=== PATIENT | female | born 1990 | race Caucasian/White ===

== ENCOUNTER → 2024-08-21 13:33 | Outpatient (REF) | payer OTHER, SELFPAY | LOC: PNTC 13:33 | PROVIDERS: ATTENDING PHYSICIAN Obstetrics & Gynecology | DX: Z36.0 Encounter for antenatal screening for chromosomal anomalies (principal); Z36.82 Encounter for antenatal screening for nuchal translucency | CPT/HCPCS: 76801; 76813 ==

== ENCOUNTER → 2024-09-14 11:05 | Outpatient (REF) | payer OTHER, SELFPAY | LOC: PNTC 11:05 | PROVIDERS: ATTENDING PHYSICIAN Obstetrics & Gynecology | DX: O99.210 Obesity complicating pregnancy, unspecified trimester (principal) | CPT/HCPCS: 76805 ==

== ENCOUNTER 2024-09-20 18:20 | Emergency (ER) | payer OTHER, SELFPAY ==
[2024-09-20 18:22] VITALS: BP 144/94
[2024-09-20 18:26] VITALS: BP 140/93
--- NOTE | 2024-09-20 18:50 | ED.GENMED ---
History of Present Illness
General
Chief Complaint: Heart Rate Problem
Source: patient
Exam Limitations: none
Time Seen by Provider: 09/20/24 18:49
Nursing documentation reviewed up to this point in time: agreed with
History of Present Illness
History of Present Illness:
34 yo female 17 weeks hx kidney stones, iron deficiency anemia, pre eclampsia with past 2 pregnancies, HELP syndrome after last delivery 6 yrs ago, had US 6 days ago which was normal for her . presents for palpitations that
started 2 weeks ago intermittently, has gradually become more frequent and past 2 days every 1-2 minutes she feels heart 'skipping a beat, like a flutter' lasting only one beat for a second.
Denies chest pain or SOB.
Past History
Past History
ED Past Medical History: Psychiatric (Anxiety/depression) and Other (UTI, kidney stones )
ED Past Surgical History: Other ([place] teeth )
Social History
Tobacco: Non-smoker
Alcohol: None
Drug: None
Personal: Single
Living: with family
Employment: Employed
Family History
Family History: Other (Noncontributory)
Review of Systems
Review of Systems
Allergies reviewed?: Yes
All Other Systems: ROS reviewed and negative except as documented in HPI and ROS
Constitutional: Denies fever, fatigue or chills
Respiratory: Denies trouble breathing
Cardiac: Reports palpitations; Denies chest pain
ABD/GI: Denies abdominal pain, nausea or diarrhea
: Denies dysuria, frequency or difficulty voiding
Musculoskeletal: Reports no symptoms
Skin: Reports no symptoms
Neurological: Reports no symptoms
Phy Exam
Physical Exam
Physical Exam:
GENERAL: No acute distress. A&Ox3.
CONSTITUTIONAL: Afebrile.
EYES: clear, conjunctivae normal
ENMT: moist mucus membranes, Pharynx nl
RESPIRATORY: Regular respirations, nonlabored, lungs clear.
CARDIOVASCULAR: Regular rate and rhythm, no murmurs, no rubs.
GI: Soft, nontender, normal BS
MUSCULOSKELETAL: Moves with ease. Well perfused.
SKIN: Warm, dry, pink
PSYCH: Normal mood and affect. Well kept, interactive and appropriate
NEUROLOGIC: Awake, alert and oriented. No focal neurological deficits
Course
Orders/Labs/Results
Orders:
Orders
09/20/24 18:21
ECG [Electrocardiogram (*1)] Urgent
Reason for Study: Palpitations
EKG- Treatment ONCE
09/20/24 19:08
Complete Blood Count/With Diff Urgent
Comprehensive Metabolic Panel Urgent
TSH Reflex To Free T4 Urgent
Abnormal Lab Results
09/20/24
19:08
Hct 34.4 L %
(37.0-47.0)
MCV 80.4 L fL
(81.0-99.0)
Plt Count 121 L 10^3/uL
(130-400)
MPV 12.2 H fL
(7.4-10.4)
AST 42 H U/L
(14-36)
ALT 39 H U/L
(0-35)
09/20/24 19:08
09/20/24 19:08
Vital Signs
Initial and Last Documented VS:
Initial Vital Signs
Temp Pulse Resp BP Pulse Ox
98.4 F 94 16 144/94 100
09/20/24 18:22 09/20/24 18:22 09/20/24 18:22 09/20/24 18:22 09/20/24 18:22
Last Documented Vital Signs
Temp Pulse Resp BP Pulse Ox
98.4 F 79 18 134/80 97
09/20/24 18:59 09/20/24 20:45 09/20/24 20:45 09/20/24 20:00 09/20/24 20:30
Risk Analyst consulted with Physician
Risk Analyst consulted with physician?: Yes
Name of Physician Consulted: Oscar
MDM/Problems Addressed
Differential Diagnosis Includes:
PVC's, PAC's
MDM/Problems Addressed:
34 yo female 17 weeks hx kidney stones, iron deficiency anemia, pre eclampsia with past 2 pregnancies, HELP syndrome after last delivery 6 yrs ago, had US 6 days ago which was normal for her . presents for palpitations that
started 2 weeks ago intermittently, has gradually become more frequent and past 2 days every 1-2 minutes she feels heart 'skipping a beat, like a flutter' lasting only one beat for a second.
Denies chest pain or SOB.
Afebrile, NAD
EKG: NSR
7:30 PM: Patient has had no episodes since arrival, her bedside monitor is consistently NSR
8:15 p.m.
CBC normal
CMP normal
TSH normal
No abnormal beats on monitor since arrival.
Will refer to PCP and give name of acid bleacher for possible Holter Monitor
Discussed with Dr. Moore who agrees with assessment and plan
*EKG
EKG Intrepretation Date: 09/20/24
Interpretation: normal
Rate: normal
Rhythm: sinus
[place]: normal axis
Interval: normal interval
QRS Pattern: normal QRS
Ischemia: no ischemia
*Critical Care Note
Total Time (30-74mins, 75-104mins- exclusive of procedures): Not Applicable
ED Attending Note
-
Portions of this chart may have been created with voice recognition software.� Occasional wrong word or��sound alike� substitutions may have occurred due to the inherent limitations of voice recognition software.
Discharge Plan
Departure
Patient Disposition: Home (Routine Discharge)
Date of Disposition: 09/20/24
Time of Disposition: 20:19
Patient with high blood pressure during this ER visit?: No
Condition: Good
Discharge Problem:
Palpitations
Instructions: Palpitations (DC)
Prescriptions:
No Action
sertraline 50 MG tablet
75 mg PO DAILY
oxycodone-acetaminophen 5 MG/325 MG tablet
1 tab PO Q6HPRN PRN (Reason: pain) Qty: 6 0RF
ondansetron 4 MG tablet,disintegrating
4 mg PO QIDPRN PRN (Reason: nausea/vomiting) Qty: 10 0RF
ibuprofen 800 MG tablet
800 mg PO QIDPRN PRN (Reason: pain) Qty: 30 0RF
cephalexin 500 MG tablet
500 mg PO QID 10 Days Qty: 40 0RF
Referrals:
Nicole Hannon CRNP [Family Provider] - Call in 1-3 days for appt
Jim Huffman MD [Active] - As needed
Activity Restrictions/Additional Instructions:
As we discussed, nothing worrisome in your workup here today.
No abnormal beats on your monitor or EKG.
You may be having PVC's or PAC's which are annoying but not dangerous.
Talk to your primary doctor. If they continue, you may need a Holter Monitor
I gave you the name of a acid bleacher to follow up with if needed.
Interventions
Interventions:
*Risk Screen - Suicide Last Done: 09/20/24 18:22
*General Assessment Last Done: 09/20/24 19:14
*Neglect/Abuse Screening Last Done: 09/20/24 18:22
*ED- Fall Risk Assessment Last Done: 09/20/24 19:14
*ED COVID-19 Vaccine History Last Done: 09/20/24 19:14
*Nursing Disposition Last Done: 09/20/24 20:51
ED- Cardiac Assessment Last Done: 09/20/24 19:14
ED- Pulmonary Assessment Last Done: 09/20/24 19:14
Discharge Date and Time
Discharge Date/Time: 09/20/24 20:53
Print Language: TAJIK
[2024-09-20 18:57] VITALS: BMI 30.8
[2024-09-20 18:58] VITALS: BP 142/82
[2024-09-20 19:30] LABS: % Basophils 0.1 % (0-2); % Eosinophils 0.4 % (0-6); % Immature Granulocytes 0.4 % (0-0.5); % Lymphocytes 22.9 % (20.5-51.1); % Monocytes 4.9 % (1.7-9.3); % Neutrophils 71.3 % (42.2-75.2); Absolute Lymphocytes 1.9 10^3/uL (1.2-3.4); Absolute Monocytes 0.4 10^3/uL (0.1-0.6); Absolute Neutrophils 5.8 10^3/uL (1.4-6.5); Hematocrit 34.4 % (37.0-47.0); Mean Corp Hgb Conc. 34.9 g/dL (33.0-37.0); Mean Corpuscular Volume 80.4 fL (81.0-99.0); Mean Platelet Volume 12.2 fL (7.4-10.4); Nucleated Red Blood Cells % 0 %; Platelet Count 121 10^3/uL (130-400); Red Blood Cell Count 4.28 10^6/uL (4.20-5.40); Red Cell Dist. Width 12.6 % (11.5-14.5); White Blood Cell Count 8.1 10^3/uL (4.8-10.8)
[2024-09-20 19:35] LABS: ALT (SGPT) 39 U/L (0-35); AST (SGOT) 42 U/L (14-36); Alkaline Phosphatase 116 U/L (38-126); Blood Urea Nitrogen 8 mg/dl (7-17); Calcium 9.1 mg/dl (8.4-10.2); Carbon Dioxide 23 mmol/L (22-30); Chloride 105 mmol/L (98-107); Estimated Creatinine Clearance > 125 ml/min; Glucose 97 mg/dl (70-99); Potassium 4.2 mmol/L (3.5-5.1); Sodium 137 mmol/L (135-145); Total Bilirubin 0.4 mg/dl (0.2-1.3); Total Protein 6.8 g/dl (6.3-8.2); eGFR > 60.00
[2024-09-20 20:00] VITALS: BP 134/80
[2024-09-20 20:06] LABS: TSH Reflex To Free T4 0.92 uIU/ml (0.47-4.68)
== END 2024-09-20 20:53 | disposition home or self-care (01) ==
LOC: EMR 18:20
PROVIDERS: Registered Nurse; EMERGENCY PHYSICIAN Student in an Organized Health Care Education/Training Program; FAMILY PHYSICIAN Nurse Practitioner Adult Health
DX: O99.891 Other specified diseases and conditions complicating pregnancy (principal); R00.2 Palpitations; Z87.59 Personal history of other complications of pregnancy, childbirth and the puerperium; Z3A.17 17 weeks gestation of pregnancy
CPT/HCPCS: 99284; 80053; 84443; 85025; 93005

== ENCOUNTER 2024-10-04 16:50 | Emergency (ER) | payer OTHER, SELFPAY ==
[2024-10-04 17:14] VITALS: BP 139/90
[2024-10-04 17:39] LABS: % Basophils 0.1 % (0-2); % Eosinophils 0.1 % (0-6); % Immature Granulocytes 0.2 % (0-0.5); % Lymphocytes 16.6 % (20.5-51.1); % Monocytes 3.8 % (1.7-9.3); % Neutrophils 79.2 % (42.2-75.2); Absolute Lymphocytes 1.4 10^3/uL (1.2-3.4); Absolute Monocytes 0.3 10^3/uL (0.1-0.6); Absolute Neutrophils 6.6 10^3/uL (1.4-6.5); Hematocrit 32.7 % (37.0-47.0); Hemoglobin 11.3 g/dL (12.0-16.0); Mean Corp Hgb Conc. 34.6 g/dL (33.0-37.0); Mean Corpuscular Hgb 28.2 pg (27.0-31.0); Mean Corpuscular Volume 81.5 fL (81.0-99.0); Mean Platelet Volume 12.3 fL (7.4-10.4); Nucleated Red Blood Cells % 0 %; Platelet Count 133 10^3/uL (130-400); Red Blood Cell Count 4.01 10^6/uL (4.20-5.40); Red Cell Dist. Width 12.8 % (11.5-14.5); White Blood Cell Count 8.4 10^3/uL (4.8-10.8)
[2024-10-04 17:43] LABS: Urine Albumin 3+ (Neg - Trace); Urine Bilirubin Negative (Negative); Urine Character Bloody (Clear); Urine Color Red; Urine Glucose Negative (Negative); Urine Ketone 2+ (Negative); Urine Leukocyte 3+ (Negative); Urine Nitrite Negative (Negative); Urine Occult Blood 4+ (Negative); Urine Urobilinogen 1+ (Neg - 1+)
[2024-10-04 17:51] LABS: Urine Bacteria Moderate (Negative); Urine Red Blood Cell >100 /HPF (0-2)
[2024-10-04 17:53] LABS: ALT (SGPT) 30 U/L (0-35); AST (SGOT) 36 U/L (14-36); Albumin 3.5 g/dl (3.5-5.0); Alkaline Phosphatase 98 U/L (38-126); Blood Urea Nitrogen 6 mg/dl (7-17); Carbon Dioxide 25 mmol/L (22-30); Chloride 106 mmol/L (98-107); Glucose 106 mg/dl (70-99); Lipase 124 U/L (23-300); Sodium 138 mmol/L (135-145); Total Bilirubin 0.5 mg/dl (0.2-1.3); Total Protein 6.4 g/dl (6.3-8.2); eGFR > 60.00
[2024-10-04 19:22] LABS: HCG, Serum Qualitative Screen Positive
[2024-10-04 20:05] VITALS: BP 148/77
[2024-10-04 20:17] VITALS: BMI 31.0
--- NOTE | 2024-10-04 20:43 | ED.GENMED ---
History of Present Illness
General
Chief Complaint: Urinary Symptoms
Source: patient
Exam Limitations: none
Time Seen by Provider: 10/04/24 20:11
Nursing documentation reviewed up to this point in time: agreed with
History of Present Illness
History of Present Illness:
34-year-old female G3, P2 at 19 weeks 2 days presents for hematuria on her urinalysis by her [employer] doctor yesterday, she has been having mild right flank pain and right groin pain for about 3 weeks. She denies fever or chills. She denies
nausea or vomiting.
Past History
Past History
ED Past Medical History: Psychiatric (Anxiety/depression) and Other (UTI, kidney stones )
ED Past Surgical History: Other ([place] teeth )
Social History
Tobacco: Non-smoker
Alcohol: None
Drug: None
Personal: Single
Living: with family
Employment: Employed
Family History
Family History: Other (Noncontributory)
Review of Systems
Review of Systems
Allergies reviewed?: Yes
All Other Systems: ROS reviewed and negative except as documented in HPI and ROS
Constitutional: Denies fever or chills
Respiratory: Denies trouble breathing
Cardiac: Denies chest pain
ABD/GI: Denies abdominal pain, nausea, vomiting, diarrhea or anorexia
: Reports flank pain (Mild right); Denies dysuria, frequency, incontinence, difficulty voiding, urgency or bleeding
Musculoskeletal: Reports other (Right groin pain)
Skin: Reports no symptoms
Neurological: Reports no symptoms
Phy Exam
Physical Exam
Physical Exam:
GENERAL: No acute distress. A&Ox3.
CONSTITUTIONAL: Afebrile.
EYES: clear, conjunctivae normal
ENMT: moist mucus membranes, Pharynx nl
RESPIRATORY: Regular respirations, nonlabored, lungs clear.
CARDIOVASCULAR: Regular rate and rhythm, no murmurs, no rubs.
GI: Soft, nontender, normal BS
MUSCULOSKELETAL: Tender to palpate right groin, pain here aggravated with lifting leg and flexing hip, right flank mildly tender to percussion. Moves with ease. Well perfused.
SKIN: Warm, dry, pink
PSYCH: Normal mood and affect. Well kept, interactive and appropriate
NEUROLOGIC: Awake, alert and oriented. No focal neurological deficits
Course
Orders/Labs/Results
Orders:
Orders
10/04/24 17:18
Test Result ONCE
10/04/24 17:33
Beta Hcg Serum Qualitative Screen [HCG, Serum Qualitative Screen] Urgent
Complete Blood Count/With Diff Urgent
Comprehensive Metabolic Panel Urgent
Lipase Urgent
Urinalysis Reflex To Culture Urgent
Date Specimen was Collected: 10/04/24
Time Specimen was Collected: 17:17
Urine Microscopic Reflex Cult Urgent
Urine Culture Urgent
BULMARO Source: U
Specimen Description:
Date Specimen was Collected: 10/04/24
Time Specimen was Collected: 17:17
10/04/24 20:42
US Renal With Bladder Urgent
Comment: bladder not full ok, looking at ureteral jets
Reason For Exam: R groin pain, hematuria, 19 weeks
Abnormal Lab Results
10/04/24
17:33
RBC 4.01 L 10^6/uL
(4.20-5.40)
Hgb 11.3 L g/dL
(12.0-16.0)
Hct 32.7 L %
(37.0-47.0)
MPV 12.3 H fL
(7.4-10.4)
Absolute Neuts (auto) 6.6 H 10^3/uL
(1.4-6.5)
Neutrophils % 79.2 H %
(42.2-75.2)
Lymphocytes % 16.6 L %
(20.5-51.1)
BUN 6 L mg/dl
(7-17)
Glucose 106 H mg/dl
(70-99)
Urine Ketones 2+ A
(Negative)
Ur Occult Blood Reflex 4+ A
(Negative)
Leukocyte Esterase Rfl 3+ A
(Negative)
Urine RBC >100 A /HPF
(0-2)
Urine Bacteria (Reflex) Moderate A
(Negative)
Urine Albumin (Reflex) 3+ A
(Neg - Trace)
10/04/24 17:33
10/04/24 17:33
Vital Signs
Initial and Last Documented VS:
Initial Vital Signs
Temp Pulse Resp BP Pulse Ox
98.4 F 92 16 139/90 98
10/04/24 17:14 10/04/24 17:14 10/04/24 17:14 10/04/24 17:14 10/04/24 17:14
Last Documented Vital Signs
Temp Pulse Resp BP Pulse Ox
98.4 F 92 16 148/77 97
10/04/24 17:14 10/04/24 17:14 10/04/24 17:14 10/04/24 20:05 10/04/24 20:18
MDM/Problems Addressed
Differential Diagnosis Includes:
Kidney stone, ureteral stone, UTI
R groin strain
MDM/Problems Addressed:
34-year-old female G3, P2 at 19 weeks 2 days presents for hematuria on her urinalysis by her [employer] doctor yesterday, she has been having mild right flank pain and right groin pain for about 3 weeks. She denies fever or chills. She denies
nausea or vomiting.
Afebrile, NAD
CBC, CMP unremarkable
U/A with blood, no sign of infection, culture pending
Renal US radiology report read:
IMPRESSION:
1. Moderate right hydronephrosis.
2. Lower pole right renal calculus measuring up to 1.1 cm..
Pt pain is not significant at this time and she is comfortable going home. 'mild' in right flank and absent in right groin when laying still, point tender over right groin, pain worse with movement, more consistent with groin strain, musculoskeletal
pain.
She will contact Dr. Santana tomorrow.
Strict return instructions discussed.
ED Attending Note
-
Portions of this chart may have been created with voice recognition software.� Occasional wrong word or��sound alike� substitutions may have occurred due to the inherent limitations of voice recognition software.
Discharge Plan
Departure
Patient Disposition: Home (Routine Discharge)
Date of Disposition: 10/04/24
Time of Disposition: 23:01
Patient with high blood pressure during this ER visit?: No
Condition: Good
Discharge Problem:
Kidney stone
Instructions: Kidney stones in adults
Prescriptions:
No Action
sertraline 50 MG tablet
75 mg PO DAILY
oxycodone-acetaminophen 5 MG/325 MG tablet
1 tab PO Q6HPRN PRN (Reason: pain) Qty: 6 0RF
ondansetron 4 MG tablet,disintegrating
4 mg PO QIDPRN PRN (Reason: nausea/vomiting) Qty: 10 0RF
ibuprofen 800 MG tablet
800 mg PO QIDPRN PRN (Reason: pain) Qty: 30 0RF
cephalexin 500 MG tablet
500 mg PO QID 10 Days Qty: 40 0RF
Referrals:
Miah Santana MD [Active] - Tomorrow
UNKNOWN - PT DOES,NOT KNOW [Unknown Provider] -
Activity Restrictions/Additional Instructions:
As we discussed, on your ultrasound, there is moderate swelling of the right kidney indicating either a recently passed kidney stone or a kidney stone down in the ureter that is not visible on the ultrasound.
As long as your pain is controlled, you can go home, drink plenty of fluids and call Dr. Santana tomorrow morning
There is no sign of urine infection, a urine culture was sent and if any bacteria grow out that need antibiotic, we will contact you.
Return here immediately for worsening pain, fever, vomiting or feeling sicker in any way.
Strain your urine and collect any stone in the container provided.
Tylenol as needed for pain
Interventions
Interventions:
*Risk Screen - Suicide Last Done: 10/04/24 17:14
*General Assessment Last Done: 10/04/24 20:18
*Neglect/Abuse Screening Last Done: 10/04/24 17:14
*ED- Fall Risk Assessment Last Done: 10/04/24 20:18
*ED COVID-19 Vaccine History Last Done: 10/04/24 20:18
ED-Female Genitourinary Assessment Last Done: 10/04/24 20:18
Discharge Date and Time
Print Language: MAURITANIAN
[2024-10-04 21:00] VITALS: BP 131/78
[2024-10-04 21:45] VITALS: BP 125/70
[2024-10-04 22:00] VITALS: BP 129/75
[2024-10-04 23:00] VITALS: BP 119/72
== END 2024-10-04 23:18 | disposition home or self-care (01) ==
LOC: EMR 16:50
PROVIDERS: Emergency Medicine; EMERGENCY PHYSICIAN Student in an Organized Health Care Education/Training Program; FAMILY PHYSICIAN Nurse Practitioner Adult Health
DX: O99.891 Other specified diseases and conditions complicating pregnancy (principal); N13.2 Hydronephrosis with renal and ureteral calculous obstruction; O99.342 Other mental disorders complicating pregnancy, second trimester; F41.8 Other specified anxiety disorders; Z3A.19 19 weeks gestation of pregnancy; Z87.440 Personal history of urinary (tract) infections; Z87.442 Personal history of urinary calculi
CPT/HCPCS: 99284; 76770; 80053; 81003; 81015; 83690; 84703; 85025; 87086

== ENCOUNTER → 2024-10-12 09:45 | Outpatient (REF) | payer OTHER, SELFPAY | LOC: PNTC 09:45 | PROVIDERS: ATTENDING PHYSICIAN Obstetrics & Gynecology; FAMILY PHYSICIAN Nurse Practitioner Adult Health; REFERRING PHYSICIAN Surgery | DX: O99.210 Obesity complicating pregnancy, unspecified trimester (principal); N13.2 Hydronephrosis with renal and ureteral calculous obstruction | CPT/HCPCS: 76811; 76817 ==

== ENCOUNTER → 2024-10-19 07:55 | Outpatient (REF) | payer OTHER, SELFPAY | LOC: RAD 07:55 | PROVIDERS: ATTENDING PHYSICIAN Surgery; FAMILY PHYSICIAN Nurse Practitioner Adult Health; REFERRING PHYSICIAN Student in an Organized Health Care Education/Training Program | DX: N13.2 Hydronephrosis with renal and ureteral calculous obstruction (principal) | CPT/HCPCS: 74018 ==

== ENCOUNTER → 2024-10-24 09:09 | Outpatient (REF) | payer OTHER, SELFPAY | LOC: HWRAD 09:09 | PROVIDERS: ATTENDING PHYSICIAN Surgery; FAMILY PHYSICIAN Nurse Practitioner Adult Health | DX: N13.1 Hydronephrosis with ureteral stricture, not elsewhere classified (principal) | CPT/HCPCS: 76770 ==

== ENCOUNTER → 2024-10-26 09:06 | Outpatient (REF) | payer OTHER, SELFPAY | LOC: PNTC 09:06 | PROVIDERS: ATTENDING PHYSICIAN Obstetrics & Gynecology | DX: O99.210 Obesity complicating pregnancy, unspecified trimester (principal); O14.20 HELLP syndrome (HELLP), unspecified trimester | CPT/HCPCS: 76815 ==

== ENCOUNTER 2024-10-30 06:24 | Day surgery (SDC) | payer OTHER, SELFPAY ==
[2024-10-30] VITALS (8 sets, daily range): BP systolic 104–128; BP diastolic 60–78; BMI 31.0
[2024-10-30] MEDS: NORMOSOL-R/PLASMALYTE-A 1000 IV (11:25)
--- NOTE | 2024-10-30 11:28 | PTCARENOTE ---
FHR by doppler 150-160 with audible accelerations
== END 2024-10-30 15:20 | disposition home or self-care (01) ==
LOC: SDS 06:24
PROVIDERS: ATTENDING PHYSICIAN Surgery
DX: N13.2 Hydronephrosis with renal and ureteral calculous obstruction (principal)
CPT/HCPCS: 52356; 74018; 76000; C1769; C2617

== ENCOUNTER → 2024-12-05 08:20 | Outpatient (REF) | payer OTHER, SELFPAY | LOC: PNTC 08:20 | PROVIDERS: ATTENDING PHYSICIAN Obstetrics & Gynecology | DX: Z87.59 Personal history of other complications of pregnancy, childbirth and the puerperium (principal) | CPT/HCPCS: 76816 ==

== ENCOUNTER → 2025-01-02 08:41 | Outpatient (REF) | payer OTHER, SELFPAY | LOC: PNTC 08:41 | PROVIDERS: ATTENDING PHYSICIAN Obstetrics & Gynecology | DX: Z87.59 Personal history of other complications of pregnancy, childbirth and the puerperium (principal) | CPT/HCPCS: 59025; 76816 ==

== ENCOUNTER 2025-01-03 12:00 | Observation (INO) | payer OTHER, SELFPAY ==
[2025-01-03 12:36] VITALS: BP 134/89; BMI 33.2
[2025-01-03 12:59] LABS: ALT (SGPT) 22 U/L (0-35); AST (SGOT) 34 U/L (14-36); Albumin 3.6 g/dl (3.5-5.0); Alkaline Phosphatase 177 U/L (38-126); Blood Urea Nitrogen 5 mg/dl (7-17); Calcium 8.7 mg/dl (8.4-10.2); Carbon Dioxide 21 mmol/L (22-30); Chloride 110 mmol/L (98-107); Estimated Creatinine Clearance > 125 ml/min; Glucose 83 mg/dl (70-99); Potassium 4.3 mmol/L (3.5-5.1); Sodium 135 mmol/L (135-145); Total Protein 6.8 g/dl (6.3-8.2); Uric Acid 4.9 mg/dl (2.5-6.2); eGFR > 60.00
[2025-01-03 13:07] LABS: Hematocrit 33.4 % (37.0-47.0); Hemoglobin 10.7 g/dL (12.0-16.0); Mean Corp Hgb Conc. 32.0 g/dL (33.0-37.0); Mean Corpuscular Volume 80.5 fL (81.0-99.0); Nucleated Red Blood Cells % 0 %; Platelet Count 139 10^3/uL (130-400); Red Cell Dist. Width 13.2 % (11.5-14.5)
[2025-01-03 13:17] LABS: Urine Character Clear (Clear)
[2025-01-03 13:31] LABS: Urine Squamous Cell 26-30 /LPF (Few); Urine Urothelial Cell 0-2 /LPF (FEW)
== END 2025-01-03 16:25 | disposition home or self-care (01) ==
LOC: LDRP 12:00
PROVIDERS: ADMITTING PHYSICIAN Obstetrics & Gynecology
DX: Z03.79 Encounter for other suspected maternal and fetal conditions ruled out (principal)
CPT/HCPCS: 80053; 81003; 81015; 82570; 84156; 84550; 85025; 86850; 86900; 86901; G0378

== ENCOUNTER → 2025-01-09 08:40 | Outpatient (REF) | payer OTHER, SELFPAY | LOC: PNTC 08:40 | PROVIDERS: ATTENDING PHYSICIAN Obstetrics & Gynecology | DX: O14.90 Unspecified pre-eclampsia, unspecified trimester (principal) | CPT/HCPCS: 59025; 76815 ==

== ENCOUNTER → 2025-01-16 08:42 | Outpatient (REF) | payer OTHER, SELFPAY ==
[2025-01-16 09:31] LABS: Hematocrit 30.7 % (37.0-47.0); Hemoglobin 10.0 g/dL (12.0-16.0); Mean Corp Hgb Conc. 32.6 g/dL (33.0-37.0); Mean Corpuscular Volume 78.5 fL (81.0-99.0); Nucleated Red Blood Cells % 0 %; Platelet Count 119 10^3/uL (130-400); Red Cell Dist. Width 13.1 % (11.5-14.5)
[2025-01-16 09:59] LABS: Urine Character Clear (Clear)
[2025-01-16 10:43] LABS: Urine Red Blood Cell 0-2 /HPF (0-2); Urine Squamous Cell >30 /LPF (Few)
[2025-01-16 10:52] LABS: ALT (SGPT) 23 U/L (0-35); AST (SGOT) 39 U/L (14-36); Albumin 3.1 g/dl (3.5-5.0); Alkaline Phosphatase 183 U/L (38-126); Blood Urea Nitrogen 6 mg/dl (7-17); Calcium 8.2 mg/dl (8.4-10.2); Carbon Dioxide 21 mmol/L (22-30); Chloride 110 mmol/L (98-107); Glucose 89 mg/dl (70-99); Potassium 4.3 mmol/L (3.5-5.1); Sodium 135 mmol/L (135-145); Total Protein 6.0 g/dl (6.3-8.2); eGFR > 60.00
== END ==
LOC: PNTC 08:42
PROVIDERS: ATTENDING PHYSICIAN Obstetrics & Gynecology
DX: O14.90 Unspecified pre-eclampsia, unspecified trimester (principal)
CPT/HCPCS: 36415; 59025; 76815; 80053; 81003; 81015; 82570; 84156; 85025

== ENCOUNTER 2025-01-19 09:57 | Observation (INO) | payer OTHER, SELFPAY ==
[2025-01-19 10:40] VITALS: BP 139/83; BMI 36.1
[2025-01-19 10:47] LABS: Hematocrit 29.8 % (37.0-47.0); Hemoglobin 9.9 g/dL (12.0-16.0); Mean Corp Hgb Conc. 33.2 g/dL (33.0-37.0); Mean Corpuscular Volume 76.8 fL (81.0-99.0); Platelet Count 121 10^3/uL (130-400); Red Cell Dist. Width 13.2 % (11.5-14.5)
[2025-01-19 10:59] LABS: ALT (SGPT) 17 U/L (0-35); AST (SGOT) 31 U/L (14-36); Albumin 3.1 g/dl (3.5-5.0); Alkaline Phosphatase 193 U/L (38-126); Blood Urea Nitrogen 6 mg/dl (7-17); Calcium 8.1 mg/dl (8.4-10.2); Carbon Dioxide 21 mmol/L (22-30); Chloride 111 mmol/L (98-107); Estimated Creatinine Clearance > 125 ml/min; Glucose 116 mg/dl (70-99); Potassium 4.2 mmol/L (3.5-5.1); Sodium 134 mmol/L (135-145); Total Protein 5.9 g/dl (6.3-8.2); eGFR > 60.00
== END 2025-01-19 12:38 | disposition home or self-care (01) ==
LOC: LDRP 09:57
PROVIDERS: ADMITTING PHYSICIAN Student in an Organized Health Care Education/Training Program; FAMILY PHYSICIAN Obstetrics & Gynecology
DX: O13.3 Gestational [pregnancy-induced] hypertension without significant proteinuria, third trimester (principal); O99.113 Other diseases of the blood and blood-forming organs and certain disorders involving the immune mechanism complicating pregnancy, third trimester; D69.6 Thrombocytopenia, unspecified; Z3A.34 34 weeks gestation of pregnancy; O99.013 Anemia complicating pregnancy, third trimester; O99.343 Other mental disorders complicating pregnancy, third trimester; F41.9 Anxiety disorder, unspecified; J45.909 Unspecified asthma, uncomplicated; O99.213 Obesity complicating pregnancy, third trimester; Z91.030 Bee allergy status; Z87.442 Personal history of urinary calculi; Z87.440 Personal history of urinary (tract) infections; Z79.82 Long term (current) use of aspirin
CPT/HCPCS: 59025; 80053; 82570; 84156; 85027; 86850; 86900; 86901; G0378

== ENCOUNTER → 2025-01-23 08:40 | Outpatient (REF) | payer OTHER, SELFPAY ==
[2025-01-23 09:09] LABS: Urine Character Clear (Clear)
[2025-01-23 09:18] LABS: Urine Red Blood Cell 0-2 /HPF (0-2); Urine Squamous Cell >30 /LPF (Few); Urine White Cell 16-20 /HPF (0-5)
[2025-01-23 09:21] LABS: Hematocrit 31.9 % (37.0-47.0); Hemoglobin 10.4 g/dL (12.0-16.0); Mean Corp Hgb Conc. 32.6 g/dL (33.0-37.0); Mean Corpuscular Volume 77.2 fL (81.0-99.0); Platelet Count 117 10^3/uL (130-400); Red Cell Dist. Width 13.2 % (11.5-14.5)
[2025-01-23 10:38] LABS: ALT (SGPT) 19 U/L (0-35); AST (SGOT) 33 U/L (14-36); Albumin 3.3 g/dl (3.5-5.0); Alkaline Phosphatase 199 U/L (38-126); Blood Urea Nitrogen 7 mg/dl (7-17); Calcium 8.4 mg/dl (8.4-10.2); Carbon Dioxide 20 mmol/L (22-30); Chloride 110 mmol/L (98-107); Glucose 86 mg/dl (70-99); Potassium 4.4 mmol/L (3.5-5.1); Sodium 134 mmol/L (135-145); Total Protein 6.2 g/dl (6.3-8.2); eGFR > 60.00
== END ==
LOC: PNTC 08:40
PROVIDERS: ATTENDING PHYSICIAN Obstetrics & Gynecology
DX: O14.00 Mild to moderate pre-eclampsia, unspecified trimester (principal)
CPT/HCPCS: 36415; 59025; 76815; 80053; 81003; 81015; 82570; 84156; 85027

== ENCOUNTER → 2025-01-30 08:41 | Outpatient (REF) | payer OTHER, SELFPAY ==
[2025-01-30 09:15] LABS: Urine Character Clear (Clear)
[2025-01-30 09:31] LABS: Urine Squamous Cell >30 /LPF (Few)
[2025-01-30 09:32] LABS: Urine Urothelial Cell 0-2 /LPF (FEW)
[2025-01-30 09:33] LABS: Urine White Cell 26-30 /HPF (0-5)
[2025-01-30 09:34] LABS: ALT (SGPT) 22 U/L (0-35); AST (SGOT) 39 U/L (14-36); Albumin 3.1 g/dl (3.5-5.0); Alkaline Phosphatase 208 U/L (38-126); Blood Urea Nitrogen 8 mg/dl (7-17); Calcium 8.4 mg/dl (8.4-10.2); Carbon Dioxide 23 mmol/L (22-30); Chloride 109 mmol/L (98-107); Glucose 83 mg/dl (70-99); Potassium 4.2 mmol/L (3.5-5.1); Sodium 137 mmol/L (135-145); Total Protein 6.0 g/dl (6.3-8.2); eGFR > 60.00
[2025-01-30 09:39] LABS: Hematocrit 30.8 % (37.0-47.0); Hemoglobin 9.8 g/dL (12.0-16.0); Mean Corp Hgb Conc. 31.8 g/dL (33.0-37.0); Mean Corpuscular Volume 76.6 fL (81.0-99.0); Platelet Count 104 10^3/uL (130-400); Red Cell Dist. Width 13.1 % (11.5-14.5)
== END ==
LOC: PNTC 08:41
PROVIDERS: Obstetrics & Gynecology; ATTENDING PHYSICIAN Obstetrics & Gynecology
DX: Z87.59 Personal history of other complications of pregnancy, childbirth and the puerperium (principal)
CPT/HCPCS: 36415; 59025; 76816; 80053; 81003; 81015; 82570; 84156; 85027

== ENCOUNTER 2025-02-01 08:20 | Observation (INO) | payer OTHER, SELFPAY ==
[2025-02-01 08:49] VITALS: BP 126/73; BMI 34.9
[2025-02-01 09:06] LABS: Hematocrit 30.7 % (37.0-47.0); Hemoglobin 9.9 g/dL (12.0-16.0); Mean Corp Hgb Conc. 32.2 g/dL (33.0-37.0); Mean Corpuscular Volume 76.4 fL (81.0-99.0); Nucleated Red Blood Cells % 0 %; Platelet Count 105 10^3/uL (130-400); Red Cell Dist. Width 13.2 % (11.5-14.5)
[2025-02-01 09:24] LABS: ALT (SGPT) 22 U/L (0-35); AST (SGOT) 32 U/L (14-36); Albumin 3.2 g/dl (3.5-5.0); Alkaline Phosphatase 218 U/L (38-126); Blood Urea Nitrogen 7 mg/dl (7-17); Calcium 8.8 mg/dl (8.4-10.2); Carbon Dioxide 20 mmol/L (22-30); Chloride 110 mmol/L (98-107); Estimated Creatinine Clearance > 125 ml/min; Glucose 82 mg/dl (70-99); Potassium 4.1 mmol/L (3.5-5.1); Sodium 135 mmol/L (135-145); Total Protein 6.2 g/dl (6.3-8.2); eGFR > 60.00
== END 2025-02-01 09:50 | disposition home or self-care (01) ==
LOC: PNTC-IN 08:20
PROVIDERS: ADMITTING PHYSICIAN Obstetrics & Gynecology; ATTENDING PHYSICIAN Obstetrics & Gynecology
DX: O99.113 Other diseases of the blood and blood-forming organs and certain disorders involving the immune mechanism complicating pregnancy, third trimester (principal); D69.6 Thrombocytopenia, unspecified; Z3A.36 36 weeks gestation of pregnancy; R79.89 Other specified abnormal findings of blood chemistry; Q23.81 Bicuspid aortic valve; O99.213 Obesity complicating pregnancy, third trimester; O99.343 Other mental disorders complicating pregnancy, third trimester; F41.9 Anxiety disorder, unspecified; O99.013 Anemia complicating pregnancy, third trimester; D64.9 Anemia, unspecified; J45.909 Unspecified asthma, uncomplicated; Z91.030 Bee allergy status; Z87.440 Personal history of urinary (tract) infections; Z87.442 Personal history of urinary calculi
CPT/HCPCS: 59025; 80053; 85025; G0378

== ENCOUNTER → 2025-02-06 08:38 | Outpatient (REF) | payer OTHER, SELFPAY ==
[2025-02-06 09:20] LABS: Urine Character Clear (Clear)
[2025-02-06 09:22] LABS: Platelet Count 95 10^3/uL (130-400)
[2025-02-06 09:24] LABS: Hematocrit 31.9 % (37.0-47.0); Hemoglobin 10.2 g/dL (12.0-16.0); Mean Corp Hgb Conc. 32.0 g/dL (33.0-37.0); Mean Corpuscular Volume 79.6 fL (81.0-99.0); Red Cell Dist. Width 14.8 % (11.5-14.5)
[2025-02-06 09:39] LABS: ALT (SGPT) 30 U/L (0-35); AST (SGOT) 47 U/L (14-36); Albumin 3.2 g/dl (3.5-5.0); Alkaline Phosphatase 239 U/L (38-126); Blood Urea Nitrogen 7 mg/dl (7-17); Calcium 8.5 mg/dl (8.4-10.2); Carbon Dioxide 23 mmol/L (22-30); Chloride 110 mmol/L (98-107); Glucose 74 mg/dl (70-99); Potassium 4.5 mmol/L (3.5-5.1); Sodium 135 mmol/L (135-145); Total Protein 6.1 g/dl (6.3-8.2); eGFR > 60.00
[2025-02-06 10:23] LABS: Urine Squamous Cell >30 /LPF (Few)
[2025-02-06 10:24] LABS: Urine Red Blood Cell 0-2 /HPF (0-2)
== END ==
LOC: PNTC 08:38
PROVIDERS: Obstetrics & Gynecology; ATTENDING PHYSICIAN Obstetrics & Gynecology
DX: Z87.59 Personal history of other complications of pregnancy, childbirth and the puerperium (principal); O99.213 Obesity complicating pregnancy, third trimester; O99.013 Anemia complicating pregnancy, third trimester
CPT/HCPCS: 36415; 59025; 76815; 80053; 81003; 81015; 82570; 84156; 85027

== ENCOUNTER → 2025-02-08 16:00 | Outpatient (REF) | payer OTHER, SELFPAY | LOC: PNTC 16:00 | PROVIDERS: ATTENDING PHYSICIAN Obstetrics & Gynecology | DX: O13.9 Gestational [pregnancy-induced] hypertension without significant proteinuria, unspecified trimester (principal) | CPT/HCPCS: 59025 ==

== ENCOUNTER → 2025-02-13 08:47 | Outpatient (REF) | payer OTHER, SELFPAY ==
[2025-02-13 09:32] LABS: Hematocrit 32.1 % (37.0-47.0); Hemoglobin 10.3 g/dL (12.0-16.0); Mean Corp Hgb Conc. 32.1 g/dL (33.0-37.0); Mean Corpuscular Volume 81.3 fL (81.0-99.0); Platelet Count 78 10^3/uL (130-400); Red Cell Dist. Width 18.7 % (11.5-14.5)
[2025-02-13 09:38] LABS: Urine Character Clear (Clear)
[2025-02-13 09:50] LABS: Urine Red Blood Cell 0-2 /HPF (0-2); Urine Squamous Cell >30 /LPF (Few)
[2025-02-13 10:03] LABS: ALT (SGPT) 34 U/L (0-35); AST (SGOT) 48 U/L (14-36); Albumin 3.1 g/dl (3.5-5.0); Alkaline Phosphatase 266 U/L (38-126); Blood Urea Nitrogen 7 mg/dl (7-17); Calcium 8.2 mg/dl (8.4-10.2); Carbon Dioxide 20 mmol/L (22-30); Chloride 110 mmol/L (98-107); Glucose 70 mg/dl (70-99); Potassium 4.3 mmol/L (3.5-5.1); Sodium 134 mmol/L (135-145); Total Protein 5.9 g/dl (6.3-8.2); eGFR > 60.00
== END ==
LOC: PNTC 08:47
PROVIDERS: ATTENDING PHYSICIAN Obstetrics & Gynecology
DX: Z87.59 Personal history of other complications of pregnancy, childbirth and the puerperium (principal); O99.213 Obesity complicating pregnancy, third trimester; O99.013 Anemia complicating pregnancy, third trimester
CPT/HCPCS: 36415; 59025; 76815; 80053; 81003; 81015; 82570; 84156; 85027

== ENCOUNTER 2025-02-13 12:24 | Inpatient (IN) | payer OTHER, SELFPAY ==
[2025-02-13 12:42] VITALS: BP 140/95; BMI 35.4
[2025-02-13] MEDS: MAGNESIUM SULFATE 100 IV (15:19)
[2025-02-13] MEDS: LR 1000 IV (15:19)
[2025-02-13 15:21] LABS: Hematocrit 31.1 % (37.0-47.0); Hemoglobin 10.0 g/dL (12.0-16.0); Mean Corp Hgb Conc. 32.2 g/dL (33.0-37.0); Mean Corpuscular Volume 80.2 fL (81.0-99.0); Nucleated Red Blood Cells % 0 %; Platelet Count 78 10^3/uL (130-400); Red Cell Dist. Width 19.1 % (11.5-14.5)
[2025-02-13] MEDS: MAGNESIUM SULFATE 40 GRAM 1000 IV (15:48)
[2025-02-13] MEDS: PITOCIN 30 UNITS/NSS 500 ML IV (15:56)
[2025-02-13] MEDS: TYLENOL 650 MG PO (20:23)
[2025-02-13 21:14] LABS: Hematocrit 32.4 % (37.0-47.0); Hemoglobin 10.5 g/dL (12.0-16.0); Mean Corp Hgb Conc. 32.4 g/dL (33.0-37.0); Mean Corpuscular Volume 79.6 fL (81.0-99.0); Nucleated Red Blood Cells % 0 %; Red Cell Dist. Width 19.2 % (11.5-14.5)
[2025-02-13 21:16] LABS: Platelet Count 83 10^3/uL (130-400)
[2025-02-13] MEDS: FENTANYL/BUPIVACAINE 100 EPIDURAL (21:35)
[2025-02-13] MEDS: SUBLIMAZE 100 MCG EPIDURAL (21:35)
[2025-02-14] MEDS: FENTANYL/BUPIVACAINE 100 EPIDURAL (05:56)
[2025-02-14 06:52] LABS: Hematocrit 32.0 % (37.0-47.0); Hemoglobin 10.4 g/dL (12.0-16.0); Mean Corp Hgb Conc. 32.5 g/dL (33.0-37.0); Mean Corpuscular Volume 80.8 fL (81.0-99.0); Platelet Count 78 10^3/uL (130-400); Red Cell Dist. Width 19.5 % (11.5-14.5)
[2025-02-14 07:24] LABS: ALT (SGPT) 32 U/L (0-35); AST (SGOT) 45 U/L (14-36); Albumin 3.1 g/dl (3.5-5.0); Alkaline Phosphatase 297 U/L (38-126); Blood Urea Nitrogen 5 mg/dl (7-17); Calcium 6.8 mg/dl (8.4-10.2); Carbon Dioxide 19 mmol/L (22-30); Chloride 107 mmol/L (98-107); Estimated Creatinine Clearance > 125 ml/min; Glucose 90 mg/dl (70-99); Potassium 4.3 mmol/L (3.5-5.1); Sodium 131 mmol/L (135-145); Total Protein 5.8 g/dl (6.3-8.2); eGFR > 60.00
[2025-02-14] MEDS: ZOLOFT PO ×2 (08:00→12:38)
[2025-02-14 08:13] LABS: Magnesium 5.1 mg/dl (1.6-2.3)
[2025-02-14] MEDS: MAGNESIUM SULFATE 40 GRAM 1000 IV (09:12)
[2025-02-14] MEDS: PRENATAL PLUS PO (12:38)
[2025-02-14] MEDS: TRANEXAMIC ACID 100 IV (12:39)
[2025-02-14] MEDS: PITOCIN 30 UNITS/NSS 500 ML IV (12:57)
[2025-02-14] MEDS: LR 1000 IV (17:00)
[2025-02-14] MEDS: COLACE 100 MG PO (20:31)
[2025-02-15] MEDS: MAGNESIUM SULFATE 40 GRAM 1000 IV (03:13)
[2025-02-15 04:01] LABS: Hematocrit 26.1 % (37.0-47.0); Hemoglobin 8.7 g/dL (12.0-16.0); Platelet Count 97 10^3/uL (130-400)
[2025-02-15] MEDS: LR 1000 IV (05:23)
[2025-02-15] MEDS: COLACE 100 MG PO ×2 (08:23→19:56)
[2025-02-15] MEDS: MOTRIN 600 MG PO ×2 (08:23→20:03)
[2025-02-15] MEDS: PRENATAL PLUS 1 TABLET PO (08:23)
[2025-02-15] MEDS: ZOLOFT 50 MG PO (08:23)
[2025-02-15] MEDS: FEOSOL 325 MG PO (15:56)
[2025-02-15] MEDS: TYLENOL 650 MG PO (20:02)
[2025-02-16] MEDS: TYLENOL 650 MG PO (06:04)
[2025-02-16] MEDS: MOTRIN 600 MG PO (06:04)
[2025-02-16] MEDS: FEOSOL 325 MG PO (08:25)
[2025-02-16] MEDS: ZOLOFT 50 MG PO (08:25)
[2025-02-16] MEDS: PRENATAL PLUS 1 TABLET PO (08:25)
[2025-02-16] MEDS: COLACE 100 MG PO (08:25)
[2025-02-16 08:37] LABS: Hematocrit 26.1 % (37.0-47.0); Hemoglobin 8.2 g/dL (12.0-16.0); Mean Corp Hgb Conc. 31.4 g/dL (33.0-37.0); Mean Corpuscular Volume 82.1 fL (81.0-99.0); Platelet Count 93 10^3/uL (130-400); Red Cell Dist. Width 19.3 % (11.5-14.5)
--- NOTE | 2025-02-16 14:15 | CM ---
CM reviewed chart, consult received consult for high PPD score. Mother seen bedside with father, Jesús, and baby girl, Louisa. Mother and father report they have two daughters in the home, 8 years old and 6 years old, who are very excited for
their sister to come home. Mother confirms clin nurse spec- VICKY Arguelles. Mother reports her MONO recently delivered and provided her with a Post Therapist who mother will be following up with. Offered VN to parents, declining at this time.
Mother reports she has good support, father able to take 6 weeks paid time off. Mother and father confirm they have supplies needed for daughter. CM offered support, congratulated parents on child. CM will continue to follow for all discharge
planning needs.
Plan; home with family support
[2025-02-16 15:47] LABS: Syphilis/T. pallidum Ab Reflex Negative (Negative)
== END 2025-02-16 13:57 | disposition home or self-care (01) | DRG 807 ==
LOC: LDRP 12:24
PROVIDERS: Obstetrics & Gynecology; ADMITTING PHYSICIAN Student in an Organized Health Care Education/Training Program
PROC: 10907ZC Drainage of Amniotic Fluid, Therapeutic from Products of Conception, Via Natural or Artificial Opening (ICD-10-PCS; 2025-02-14)
PROC: 10E0XZZ Delivery of Products of Conception, External Approach (ICD-10-PCS; 2025-02-14)
PROC: 0KQM0ZZ Repair Perineum Muscle, Open Approach (ICD-10-PCS; 2025-02-14)
DX: O14.24 HELLP syndrome, complicating childbirth (principal); Z37.0 Single live birth; Z3A.38 38 weeks gestation of pregnancy; O70.1 Second degree perineal laceration during delivery; O70.0 First degree perineal laceration during delivery; O14.94 Unspecified pre-eclampsia, complicating childbirth; O77.0 Labor and delivery complicated by meconium in amniotic fluid; O69.81X0 Labor and delivery complicated by cord around neck, without compression, not applicable or unspecified
CPT/HCPCS: 36415; 80053; 83735; 85014; 85018; 85025; 85027; 85049; 86780; 86850; 86900; 86901; 88307